=== PATIENT | male | born 1975 | race Caucasian/White ===

== ENCOUNTER 2019-10-03 14:34 | Emergency (ER) | payer OTHER ==
[~2019-10-03] VITALS: Ht 188 cm; Wt 88.5 kg
[2019-10-03] MEDS ORDERED: NORCO 5-325 TA1 EAC1 PO (16:15)
[2019-10-03] MEDS ORDERED: CYCLOBENZAPRINE5 MG PO (16:15)
[2019-10-03 16:24] VITALS: BP 133/89
== END 2019-10-03 16:25 | disposition home or self-care (01) ==
LOC: ER 14:34
DX: M54.2 Cervicalgia (principal); M54.5 Low back pain; M54.6 Pain in thoracic spine; V89.2XXA Person injured in unspecified motor-vehicle accident, traffic, initial encounter; Y93.89 Activity, other specified; Y92.89 Other specified places as the place of occurrence of the external cause; Y99.8 Other external cause status